=== PATIENT | female | born 1950 | race Caucasian/White ===

== ENCOUNTER 2018-11-30 10:42 | Outpatient (CLI) | payer MEDICARE, BC ==
--- NOTE | 2018-11-30 13:43 | MMO ---
Bilateral MAMMO Bilat Screen [facility]. CLINICAL HISTORY: Patient is 68 years old and is seen for screening. The patient has the following family history of breast cancer: mother, at age 66, malignant (generic); sister, at age 64, malignant (generic) and niece, at age 42. The patient has no personal history of cancer. The patient has a history of left Excisional Biopsy in 1997 - benign. VIEWS: The views performed were: bilateral craniocaudal with tomosynthesis and bilateral mediolateral oblique with tomosynthesis. FILMS COMPARED: The present examination has been compared to prior imaging studies performed at [facility] on 10/01/1999, 10/03/2000, 10/04/2001, 06/25/2004, 10/28/2005, 10/28/2006, 12/04/2007, 12/04/2008, 12/04/2009, 12/04/2010, 12/06/2011, 12/06/2012, 12/07/2013, 12/09/2014, 12/11/2015, 12/13/2016 and 12/21/2016. MAMMOGRAM FINDINGS: There are scattered fibroglandular densities. Finding 1: There are stable benign appearing calcifications seen in the left breast. Finding 2: There is a stable intramammary lymph node seen in the left breast. There are no suspicious masses, suspicious calcifications, or new areas of architectural distortion. IMPRESSION: THERE IS NO MAMMOGRAPHIC EVIDENCE OF MALIGNANCY. A ROUTINE FOLLOW-UP MAMMOGRAM IN 1 YEAR IS RECOMMENDED. THE RESULTS OF THIS EXAM WERE SENT TO THE PATIENT. ACR BI-RADS Category 2 - Benign finding MAMMOGRAPHY NOTE: 1. A negative mammogram report should not delay a biopsy if a dominant of clinically suspicious mass is present. 2. Approximately 10% to 15% of breast cancers are not detected by mammography. 3. Adenosis and dense breasts may obscure an underlying neoplasm.
== END 2018-11-30 10:43 | disposition home or self-care (01) ==
LOC: BICMAMMO 10:42
PROVIDERS: ATTEND Internal Medicine
DX: Z12.31 Encounter for screening mammogram for malignant neoplasm of breast (principal); Z80.3 Family history of malignant neoplasm of breast
CPT/HCPCS: 77063; 77067

== ENCOUNTER 2019-05-29 10:50 | Outpatient (CLI) | payer MEDICARE, BC ==
--- NOTE | 2019-05-29 11:24 | RAD ---
EXAM: Chest PA and lateral: HISTORY: Dyspnea COMPARISON: 09/02/2011 FINDINGS: Streaky bibasilar infiltrate in the medial aspect of both lower lobes on frontal view. Ill-defined no dular opacity overlying the right mid lung field. Vascularity is normal. Heart and mediastinum appear unremarkable. Osseous structures are unremarkable. IMPRESSION: Evidence of bibasilar infiltrates. Nodularity overlying the right midlung. Consider further evaluatio n with chest CT.
== END 2019-05-29 10:51 | disposition home or self-care (01) ==
LOC: RAD 10:50
PROVIDERS: ATTEND Internal Medicine Pulmonary Disease
DX: R06.00 Dyspnea, unspecified (principal); R91.8 Other nonspecific abnormal finding of lung field
CPT/HCPCS: 71046